=== PATIENT | male | born 1955 | race Caucasian/White ===

== ENCOUNTER 2023-09-08 07:13 | Emergency (ER) | payer OTHER, SELFPAY ==
[2023-09-08 07:16] VITALS: BP 159/98
--- NOTE | 2023-09-08 07:43 | ED.GENMED ---
History of Present Illness
General
Chief Complaint: Abdominal Pain
Source: patient
Time Seen by Provider: 09/08/23 07:31
Travel History
Have you had any contact with someone who has COVID-19?: No
Do you have any symptoms of coronavirus? Fever > 100 degrees, chills, cough, shortness of breath, sore throat, loss of taste or smell, muscle aches, or headache?: No
History of Present Illness
History of Present Illness:
68-year-old male with past medical history of hypertension, DVT/PE and a previous umbilical and femoral hernia (notes he never had these repaired) presents to the emergency department for evaluation of right lower groin pain that started yesterday
that is only present while ambulating describing it as a sharp nonradiating sensation that will resolve with rest or when laying flat. There are no other associated symptoms including nausea, vomiting, bowel changes, urinary symptoms, testicular
pain or swelling, back or flank pain or any other concerns. Patient has not attempted any medications for relief. Notes that while laying in hospital bed at present time he is asymptomatic and without pain.
Past History
Past History
ED Past Medical History: HTN and Other (DVT/PE)
Social History
Tobacco: Non-smoker
Alcohol: None
Drug: None
Personal:
Living: with family
Review of Systems
Review of Systems
All Other Systems: ROS reviewed and negative except as documented in HPI and ROS
Phy Exam
Physical Exam
Physical Exam:
GENERAL: Alert , in no apparent distress
EYE: clear conjunctiva b/l
HEAD: NCAT
ENT: o/p clr, mmm.
ABDOMEN: Soft, without focal tenderness, no r/g, no cvat, negative Handy sign, no tenderness at McBurney's point
Genitourinary: Circumcised, no urethral discharge or bleeding appreciated, no testicular tenderness or edema, positive cremasteric reflex bilateral, no inguinal hernias appreciated
NEUROLOGICAL: Alert and oriented
SKIN: Warm and dry, skin intact.
MUSCULOSKELETAL: No edema, well perfused.
PSYCH: Normal and appropriate interaction.
Scores
Heart Failure Risk
Heart Failure Risk Score: Not Applicable
Heart Score for Chest Pain Patients
STEMI patient?: Not applicable
Withdrawal Assessment of Alcohol
Withdrawal Assessment Completed?: Not applicable
Course
Orders/Labs/Results
Orders:
Orders
09/08/23 07:45
CT Abd/pelvis W Iv Cont Urgent
Comment:
Reason For Exam: right groin pain, hx of femoral/umbilical hernia
09/08/23 07:50
Urinalysis Reflex To Culture Urgent
Date Specimen was Collected: 09/08/23
Time Specimen was Collected: 07:49
Urine Microscopic Reflex Cult Urgent
09/08/23 08:09
Complete Blood Count/With Diff Urgent
Comprehensive Metabolic Panel Urgent
Lipase Urgent
Abnormal Lab Results
09/08/23 09/08/23
07:50 08:09
MCH 31.3 H pg
(27.0-31.0)
Monocytes % 11.3 H %
(1.7-9.3)
Chloride 109 H mmol/L
(98-107)
Glucose 111 H mg/dl
(70-99)
Ur Occult Blood Reflex 1+ A
(Negative)
Leukocyte Esterase Rfl Trace A
(Negative)
09/08/23 08:09
09/08/23 08:09
Vital Signs
Initial and Last Documented VS:
Initial Vital Signs
Temp Pulse Resp BP Pulse Ox
98.0 F 75 16 159/98 97
09/08/23 07:16 09/08/23 07:16 09/08/23 07:16 09/08/23 07:16 09/08/23 07:16
Last Documented Vital Signs
Temp Pulse Resp BP Pulse Ox
98.0 F 71 16 147/79 98
09/08/23 07:16 09/08/23 10:35 09/08/23 10:35 09/08/23 10:35 09/08/23 10:35
MDM/Problems Addressed
Differential Diagnosis Includes:
Direct versus indirect hernia, renal/ureteral colic, muscular etiology, less concern for appendicitis given location of symptoms, UTI
MDM/Problems Addressed:
68-year-old male presenting the emergency department for evaluation for right groin pain that started yesterday but only while ambulating describing a sharp discomfort/pain. Patient is asymptomatic at time of my exam. Exam is otherwise reassuring
without any focal findings. Given the location of the pain and description I do suspect a hernia to be the most likely diagnosis. Will check labs and CT imaging. Patient declining anything for pain. Reassessment following.
*Radiology
Radiology exam reviewed: radiology read reviewed
*Pulse Oximetry
Patient hypoxic: no
*Critical Care Note
Total Time (30-74mins, 75-104mins- exclusive of procedures): Not Applicable
Data Reviewed
Review of Other/Old Records Reveals: Records and Radiology Studies (Patient had previous left femoral hernia with no means on the right side previously.)
Patient Management
Escalation/DeEscalation of care consider admission/obs:
Patient CT of the abdomen and pelvis without any significant findings. There was mild diverticulosis without acute diverticulitis seen however given the location of patient's pain I am less suspicious of this being a cause for his symptoms.
Possible muscular etiology. I discussed with patient that even though he is still having symptoms there does not appear to be any acute emergent pathology on his labs or CT identified. He may follow-up with his primary care physician as an
outpatient. Return precautions discussed but otherwise stable for discharge home.
ED Attending Note
-
Portions of this chart may have been created with voice recognition software.� Occasional wrong word or��sound alike� substitutions may have occurred due to the inherent limitations of voice recognition software.
Discharge Plan
Departure
Patient Disposition: Home (Routine Discharge)
Date of Disposition: 09/08/23
Time of Disposition: 10:28
Patient with high blood pressure during this ER visit?: Yes
Discharge Problem:
Right groin pain
Instructions: Abdominal Pain
Prescriptions:
No Action
metoprolol succinate 100 mg tablet extended release 24 hr
100 mg PO QPM
chlorthalidone 25 mg tablet
25 mg PO QPM
lisinopril 10 mg tablet
10 mg PO QPM
Eliquis 5 mg Tablet
10 mg PO BID 30 Days Qty: 70 0RF
Rx Instructions:
After 08/29, on 08/30 reduce dose to 5mg(1 tab) twice a day
Referrals:
Tree Álvarez, DO [Family Provider] -
Interventions
Interventions:
*Risk Screen - Suicide Last Done: 09/08/23 07:46
*General Assessment Last Done: 09/08/23 07:46
*Neglect/Abuse Screening Last Done: 09/08/23 07:46
ED- Fall Risk Assessment Last Done: 09/08/23 07:46
*ED COVID-19 Vaccine History Last Done: 09/08/23 07:16
*Nursing Disposition Last Done: 09/08/23 10:36
HO-Kuwtiy-Ysaimunhgw Assessment Last Done: 09/08/23 07:46
Discharge Date and Time
Discharge Date/Time: 09/08/23 10:36
[2023-09-08 07:59] LABS: Urine Albumin Negative (Neg - Trace); Urine Bilirubin Negative (Negative); Urine Character Clear (Clear); Urine Color Yellow; Urine Glucose Negative (Negative); Urine Ketone Negative (Negative); Urine Leukocyte Trace (Negative); Urine Nitrite Negative (Negative); Urine Occult Blood 1+ (Negative); Urine Specific Gravity 1.015 (<1.030); Urine Urobilinogen Negative (Neg - 1+)
[2023-09-08 08:10] LABS: Urine Hyaline Cast 0-2 /LPF (0-2)
[2023-09-08 08:11] LABS: Urine Red Blood Cell 0-2 /HPF (0-2); Urine White Cell 0-2 /HPF (0-5)
[2023-09-08 08:16] LABS: % Eosinophils 3.9 % (0-6); % Immature Granulocytes 0.2 % (0-0.5); % Lymphocytes 34.6 % (20.5-51.1); % Monocytes 11.3 % (1.7-9.3); Absolute Basophils 0.1 10^3/uL (0-0.2); Absolute Eosinophils 0.2 10^3/uL (0-0.7); Absolute Lymphocytes 1.7 10^3/uL (1.2-3.4); Absolute Monocytes 0.6 10^3/uL (0.1-0.6); Absolute Neutrophils 2.4 10^3/uL (1.4-6.5); Hematocrit 44.2 % (39.0-52.0); Hemoglobin 15.6 g/dL (13.0-18.0); Mean Corp Hgb Conc. 35.3 g/dL (33.0-37.0); Mean Corpuscular Hgb 31.3 pg (27.0-31.0); Mean Corpuscular Volume 88.6 fL (80.0-94.0); Mean Platelet Volume 9.7 fL (7.4-10.4); Nucleated Red Blood Cells % 0 % (-); Platelet Count 216 10^3/uL (130-400); Red Blood Cell Count 4.99 10^6/uL (4.70-6.10); Red Cell Dist. Width 13.6 % (11.5-14.5); White Blood Cell Count 4.9 10^3/uL (4.8-10.8)
[2023-09-08 08:29] LABS: ALT (SGPT) 21 U/L (0-50); AST (SGOT) 26 U/L (17-59); Albumin 3.9 g/dl (3.5-5.0); Alkaline Phosphatase 66 U/L (38-126); Blood Urea Nitrogen 19 mg/dl (9-20); Calcium 9.3 mg/dl (8.4-10.2); Carbon Dioxide 27 mmol/L (22-30); Chloride 109 mmol/L (98-107); Glucose 111 mg/dl (70-99); Lipase 73 U/L (23-300); Potassium 4.1 mmol/L (3.5-5.1); Sodium 141 mmol/L (135-145); Total Bilirubin 0.7 mg/dl (0.2-1.3); Total Protein 6.7 g/dl (6.3-8.2); eGFR > 60.00
[2023-09-08 10:35] VITALS: BP 147/79
== END 2023-09-08 10:36 | disposition home or self-care (01) ==
LOC: EMR 07:13
PROVIDERS: Physician Assistant Medical; EMERGENCY PHYSICIAN Emergency Medicine; FAMILY PHYSICIAN Family Medicine
DX: R10.31 Right lower quadrant pain (principal); I10 Essential (primary) hypertension; Z86.718 Personal history of other venous thrombosis and embolism
CPT/HCPCS: 99284; 74177; 80053; 81003; 81015; 83690; 85025; Q9967

== ENCOUNTER 2024-10-20 15:23 | Emergency (ER) | payer OTHER, SELFPAY ==
[2024-10-20 15:25] VITALS: BP 157/104
[2024-10-20 15:43] LABS: % Basophils 0.8 % (0-2); % Eosinophils 3.8 % (0-6); % Immature Granulocytes 0.3 % (0-0.5); % Lymphocytes 40.6 % (20.5-51.1); % Monocytes 11.8 % (1.7-9.3); % Neutrophils 42.7 % (42.2-75.2); Absolute Basophils 0.1 10^3/uL (0-0.2); Absolute Eosinophils 0.3 10^3/uL (0-0.7); Absolute Lymphocytes 2.9 10^3/uL (1.2-3.4); Absolute Monocytes 0.8 10^3/uL (0.1-0.6); Hematocrit 44.4 % (39.0-52.0); Hemoglobin 15.4 g/dL (13.0-18.0); Mean Corp Hgb Conc. 34.7 g/dL (33.0-37.0); Mean Corpuscular Volume 92.3 fL (80.0-94.0); Mean Platelet Volume 9.7 fL (7.4-10.4); Nucleated Red Blood Cells % 0 % (-); Platelet Count 241 10^3/uL (130-400); Red Blood Cell Count 4.81 10^6/uL (4.70-6.10); Red Cell Dist. Width 13.2 % (11.5-14.5); White Blood Cell Count 7.1 10^3/uL (4.8-10.8)
[2024-10-20 15:58] LABS: ALT (SGPT) 26 U/L (0-50); AST (SGOT) 26 U/L (17-59); Albumin 3.8 g/dl (3.5-5.0); Alkaline Phosphatase 86 U/L (38-126); Blood Urea Nitrogen 18 mg/dl (9-20); Calcium 9.6 mg/dl (8.4-10.2); Carbon Dioxide 27 mmol/L (22-30); Chloride 109 mmol/L (98-107); Glucose 104 mg/dl (70-99); Lipase 99 U/L (23-300); Potassium 4.6 mmol/L (3.5-5.1); Sodium 142 mmol/L (135-145); Total Bilirubin 0.5 mg/dl (0.2-1.3); eGFR > 60.00
--- NOTE | 2024-10-20 16:19 | ED.GENMED ---
History of Present Illness
<Cate Gilmore PA-C - Last Filed: 10/20/24 23:20>
General
Chief Complaint: Abdominal Symptoms
Source: patient
Exam Limitations: none
Time Seen by Provider: 10/20/24 16:13
Nursing documentation reviewed up to this point in time: agreed with
History of Present Illness
History of Present Illness:
Patient is a 69-year-old male with history hypertension, DVT and PE on Eliquis presenting to the emergency department w/ intermittent right upper quadrant abdominal pain over the past 3 days. Patient reports an intermittent 'burning' sensation in
his right upper abdomen without radiation to back or chest. Symptoms seem to occur randomly and not with any clear correlation to eating. He denies any associated fever, nausea/vomiting, chest pain, or shortness of breath. He has no history of
similar symptoms.
Patient reports compliance with his Eliquis.
Past History
<Cate Gilmore PA-C - Last Filed: 10/20/24 23:20>
Past History
ED Past Medical History: HTN and Other (DVT/PE)
ED Past Surgical History: Other (Hernia repair)
Social History
Tobacco: Non-smoker
Alcohol: None
Drug: None
Personal:
Living: with family
Review of Systems
<Cate Gilmore PA-C - Last Filed: 10/20/24 23:20>
Review of Systems
Allergies reviewed?: Yes
All Other Systems: ROS reviewed and negative except as documented in HPI and ROS
Phy Exam
<Cate Gilmore PA-C - Last Filed: 10/20/24 23:20>
Physical Exam
Physical Exam:
Vitals: Hypertensive, otherwise vital signs stable. Afebrile
General: Patient is well appearing, no acute distress. Nontoxic-appearing
Skin: Warm and dry, no rashes or lesions
Head: Normocephalic, atraumatic
Eyes: Sclera nonicteric. EOMs intact. No nystagmus.
Throat: Protecting airway
Neck: Normal ROM, no cervical spine tenderness, no meningismus
Cardiac: Regular rate and rhythm, no murmurs.
Pulm: Normal respiratory effort, no wheezes, rales, rhonchi heard on exam.
Abdomen: Abdomen soft. Mild tenderness in right upper quadrant. No rebound tenderness or guarding. Negative Handy sign.
Extremities: No evidence of cyanosis or edema
Neuro: AAOx3. CN II-XII intact. No focal neurologic deficits.
Psychiatric: Normal affect.
Course
<Cate Gilmore PA-C - Last Filed: 10/20/24 23:20>
Orders/Labs/Results
Orders:
Orders
10/20/24 15:33
Complete Blood Count/With Diff Urgent
Comprehensive Metabolic Panel Urgent
Lipase Urgent
10/20/24 16:25
US Abdomen Complete/Upper Urgent
Comment:
Reason For Exam: RUQ pain
10/20/24 16:26
Electrocardiogram (*1) Urgent
Reason for Study: Abdominal Pain
EKG- Treatment ONCE
10/20/24 19:42
CT Abd/pelvis W Iv Cont Urgent
Comment:
Reason For Exam: RUQ pain on eliquis
Famotidine [Pepcid] 20 mg IV NOW STA
Abnormal Lab Results
10/20/24
15:33
MCH 32.0 H pg
(27.0-31.0)
Absolute Monos (auto) 0.8 H 10^3/uL
(0.1-0.6)
Monocytes % 11.8 H %
(1.7-9.3)
Chloride 109 H mmol/L
(98-107)
Glucose 104 H mg/dl
(70-99)
10/20/24 15:33
10/20/24 15:33
Vital Signs
Initial and Last Documented VS:
Initial Vital Signs
Temp Pulse Resp BP Pulse Ox
97.9 F 84 16 157/104 97
10/20/24 15:25 10/20/24 15:25 10/20/24 15:25 10/20/24 15:25 10/20/24 15:25
Last Documented Vital Signs
Temp Pulse Resp BP Pulse Ox
97.9 F 84 16 131/72 97
10/20/24 15:25 10/20/24 15:25 10/20/24 15:25 10/20/24 21:00 10/20/24 21:30
<Darren Hoskins Jr., PA-C - Last Filed: 10/20/24 21:28>
Orders/Labs/Results
Orders:
Orders
10/20/24 15:33
Complete Blood Count/With Diff Urgent
Comprehensive Metabolic Panel Urgent
Lipase Urgent
10/20/24 16:25
US Abdomen Complete/Upper Urgent
Comment:
Reason For Exam: RUQ pain
10/20/24 16:26
Electrocardiogram (*1) Urgent
Reason for Study: Abdominal Pain
EKG- Treatment ONCE
10/20/24 19:42
CT Abd/pelvis W Iv Cont Urgent
Comment:
Reason For Exam: RUQ pain on eliquis
Famotidine [Pepcid] 20 mg IV NOW STA
Abnormal Lab Results
10/20/24
15:33
MCH 32.0 H pg
(27.0-31.0)
Absolute Monos (auto) 0.8 H 10^3/uL
(0.1-0.6)
Monocytes % 11.8 H %
(1.7-9.3)
Chloride 109 H mmol/L
(98-107)
Glucose 104 H mg/dl
(70-99)
10/20/24 15:33
10/20/24 15:33
Vital Signs
Initial and Last Documented VS:
Initial Vital Signs
Temp Pulse Resp BP Pulse Ox
97.9 F 84 16 157/104 97
10/20/24 15:25 10/20/24 15:25 10/20/24 15:25 10/20/24 15:25 10/20/24 15:25
Last Documented Vital Signs
Temp Pulse Resp BP Pulse Ox
97.9 F 84 16 131/72 97
10/20/24 15:25 10/20/24 15:25 10/20/24 15:25 10/20/24 21:00 10/20/24 21:30
<Cate Gilmore PA-C - Last Filed: 10/20/24 23:20>
MDM/Problems Addressed
Differential Diagnosis Includes:
Not limited to: Biliary colic, acute cholecystitis, cholangitis, choledocholithiasis, pancreatitis, zoster etc.
MDM/Problems Addressed:
69 y.o male presenting with 3 days of intermittent right upper abdominal discomfort described as 'burning'. No associated fever, vomiting, back pain, or shortness of breath. Patient hypertensive on arrival with otherwise stable vital signs. Physical
exam as above. Basic labs initiated in triage without clinically significant abnormalities. Differential broad at this time. No rash to suggest zoster. Do not suspect PE as patient is currently anticoagulated on eliquis with no SOB and normal vital
signs. Suspect likely intra-abdominal source possible GERD vs biliary colic. Will obtain abdominal US. Patient declining analgesia at this time.
Update: US without acute findings. Discussed with patient. Will proceed w/ CT abdomen for further eval. Will give dose IV pepcid.
Case signed out to Armando Hoskins PA-C pending CT scan.
Chronic conditions affecting care:
Hypertension, DVT/PE on Eliquis
Acute Exacerbation and/or Progression of Chronic Illness:
Acutely hypertensive
<Cate Gilmore PA-C - Last Filed: 10/20/24 23:20>
*Pulse Oximetry
Patient hypoxic: no
*EKG
Interpreted by ED Provider?: Yes
EKG Intrepretation Date: 10/20/24
Interpretation: abnormal
Comparison EKG: no changes
Heart Rate: 68
Rate: normal
Rhythm: sinus
[place]: normal axis
Interval: normal QT interval
QRS Pattern: normal QRS
Ischemia: non-specific ST changes
*Screwdown Operator Interpretation
Rate: Screwdown Operator- N/A
*Critical Care Note
Total Time (30-74mins, 75-104mins- exclusive of procedures): Not Applicable
<Darren Hoskins Jr., PA-C - Last Filed: 10/20/24 21:28>
Update Note
Update Note:
2120: ES////CT scan without emergent findings discussed with the patient patient well-appearing no distress at this point stable for discharge. Written for antacid medication otherwise return precautions given.
ED Attending Note
<Cate Gilmore PA-C - Last Filed: 10/20/24 23:20>
-
Portions of this chart may have been created with voice recognition software.� Occasional wrong word or��sound alike� substitutions may have occurred due to the inherent limitations of voice recognition software.
Discharge Plan
Departure
Patient Disposition: Home (Routine Discharge)
Date of Disposition: 10/20/24
Time of Disposition: 21:27
Patient with high blood pressure during this ER visit?: No
Condition: Good
Covid-19: Not Applicable
Discharge Problem:
Abdominal pain
Instructions: Abdominal Pain
Prescriptions:
New
famotidine 40 mg tablet
40 mg PO DAILY Qty: 14 0RF
No Action
metoprolol succinate 100 mg tablet extended release 24 hr
100 mg PO QPM
chlorthalidone 25 mg tablet
25 mg PO QPM
lisinopril 10 mg tablet
10 mg PO QPM
Eliquis 5 mg Tablet
10 mg PO BID 30 Days Qty: 70 0RF
Rx Instructions:
After 08/29, on 08/30 reduce dose to 5mg(1 tab) twice a day
Referrals:
Tree Álvarez DO [Family Provider] -
Activity Restrictions/Additional Instructions:
You came to the emergency department today with concerns of upper abdominal pain and chest discomfort. He had a reassuring assessment. Please have closely as an outpatient. Return for any worsening, new or concerning symptoms.
Interventions
Interventions:
*Risk Screen - Suicide Last Done: 10/20/24 15:25
*General Assessment Last Done: 10/20/24 15:25
*Neglect/Abuse Screening Last Done: 10/20/24 15:25
*ED- Fall Risk Assessment Last Done: 10/20/24 21:49
*ED COVID-19 Vaccine History Last Done: 10/20/24 15:25
*Nursing Disposition Last Done: 10/20/24 21:49
PN-Bevdjh-Azozhlbezj Assessment Last Done: 10/20/24 19:22
Discharge Date and Time
Discharge Date/Time: 10/20/24 21:51
Print Language: EQUATORIAL [place]
[2024-10-20 19:19] VITALS: BP 129/84
[2024-10-20 19:25] VITALS: BMI 38.7
[2024-10-20] MEDS: PEPCID 20 MG IV (19:53)
[2024-10-20 20:25] VITALS: BP 134/92
[2024-10-20 21:00] VITALS: BP 131/72
== END 2024-10-20 21:51 | disposition home or self-care (01) ==
LOC: EMR 15:23
PROVIDERS: Emergency Medicine; EMERGENCY PHYSICIAN Emergency Medicine; FAMILY PHYSICIAN Family Medicine
DX: R10.11 Right upper quadrant pain (principal); I10 Essential (primary) hypertension; Z86.718 Personal history of other venous thrombosis and embolism; Z86.711 Personal history of pulmonary embolism; Z79.01 Long term (current) use of anticoagulants
CPT/HCPCS: 96374; 99284; 74177; 76700; 80053; 83690; 85025; 93005; Q9967

== ENCOUNTER 2025-04-14 11:38 | Emergency (ER) | payer OTHER, SELFPAY ==
[2025-04-14 11:41] VITALS: BP 124/92
[2025-04-14 12:08] LABS: Hematocrit 49.2 % (39.0-52.0); Hemoglobin 16.2 g/dL (13.0-18.0); Mean Corp Hgb Conc. 32.9 g/dL (33.0-37.0); Mean Corpuscular Volume 93.9 fL (80.0-94.0); Nucleated Red Blood Cells % 0 % (-); Platelet Count 222 10^3/uL (130-400); Red Cell Dist. Width 13.6 % (11.5-14.5)
[2025-04-14 12:14] LABS: INR 0.96; PT 13.1 Sec (11.4-14.6)
[2025-04-14 12:24] LABS: ALT (SGPT) 28 U/L (0-50); AST (SGOT) 32 U/L (17-59); Albumin 4.5 g/dl (3.5-5.0); Alkaline Phosphatase 78 U/L (38-126); Blood Urea Nitrogen 27 mg/dl (9-20); Calcium 9.4 mg/dl (8.4-10.2); Carbon Dioxide 28 mmol/L (22-30); Chloride 107 mmol/L (98-107); Glucose 95 mg/dl (70-99); Potassium 4.8 mmol/L (3.5-5.1); Sodium 143 mmol/L (135-145); Total Protein 8.0 g/dl (6.3-8.2); eGFR 59.10
[2025-04-14 12:33] LABS: Troponin I < 0.012 ng/ml
--- NOTE | 2025-04-14 14:09 | ED.GENMED ---
History of Present Illness
General
Chief Complaint: Breathing Problem
Time Seen by Provider: 04/14/25 14:01
Nursing documentation reviewed up to this point in time: agreed with
History of Present Illness
History of Present Illness:
69-year-old male presents to the ER for evaluation of burning chest pain and cough which has been ongoing for the past 2 days. Patient reports that he is a prior history of pulmonary embolism and DVT. He has been taking his Eliquis as prescribed.
He denies any fevers or chills. He does report having a sore throat for the past 2 days. No reported fever. No reported sick contacts. He does report some minor discomfort behind his right knee which is new in the past few days.
Past History
Past History
ED Past Medical History: HTN and Other (DVT/PE)
ED Past Surgical History: Other (Hernia repair)
Social History
Tobacco: Non-smoker
Alcohol: None
Drug: None
Personal:
Living: with family
Review of Systems
Review of Systems
Allergies reviewed?: Yes
Phy Exam
Physical Exam
Physical Exam:
Patient is awake, alert, appears in no acute distress, head is NCAT, PERRL, EOMI mucous membranes moist, conjunctiva pink, posterior pharynx is clear, no erythema, no asymmetry, no exudates, heart regular rate and rhythm without murmurs or ectopy,
lungs are clear to auscultation without wheezes rales or rhonchi, no JVD, abdomen is soft and nontender on palpation, trace edema to right lower extremity with mild chronic venous stasis changes, 2+ DP pulses present symmetric bilateral feet, GCS is
15
Scores
Heart Failure Risk
Heart Failure Risk Score: Not Applicable
Course
Orders/Labs/Results
Orders:
Orders
04/14/25 11:43
Electrocardiogram (*1) Urgent
Reason for Study: Shortness of Breath
04/14/25 11:44
EKG- Treatment ONCE
04/14/25 11:47
Complete Blood Count/With Diff Urgent
Comprehensive Metabolic Panel Urgent
Prothrombin Time Urgent
Troponin I Urgent
04/14/25 14:03
CT Chest PE Study Urgent
Comment: h/o PE
Reason For Exam: chest pain
04/14/25 14:08
US Legs, Right [US Periph Venous LOWER Ext RT] Urgent
Comment:
Reason For Exam: swelling
04/14/25 14:20
COVID-19 Antigen Urgent
Source: Nasal Swab
Abnormal Lab Results
04/14/25
11:47
MCHC 32.9 L g/dL
(33.0-37.0)
Absolute Monos (auto) 0.9 H 10^3/uL
(0.1-0.6)
Neutrophils % 34.6 L %
(42.2-75.2)
Monocytes % 18.0 H %
(1.7-9.3)
BUN 27 H mg/dl
(9-20)
04/14/25 11:47
04/14/25 11:47
Labs are very reassuring with negative troponin, normal CBC, normal kidney function
Vital Signs
Initial and Last Documented VS:
Initial Vital Signs
Temp Pulse Resp BP Pulse Ox
98.5 F 96 16 124/92 98
04/14/25 11:41 04/14/25 11:41 04/14/25 11:41 04/14/25 11:41 04/14/25 11:41
Last Documented Vital Signs
Temp Pulse Resp BP Pulse Ox
98.5 F 84 16 124/92 98
04/14/25 11:41 04/14/25 14:26 04/14/25 11:41 04/14/25 11:41 04/14/25 14:11
MDM/Problems Addressed
Differential Diagnosis Includes:
Differential diagnosis to consider but not limited to pneumonia, viral syndrome, bronchitis, COVID, ACS, flu, PE along with other etiologies consider
Chronic conditions affecting care:
Prior PE, hypertension, age greater than 50
*Radiology
Radiology exam reviewed: radiology read reviewed (IMPRESSION: No acute disease of the chest. No pulmonary embolus Mild mediastinal lymphadenopathy. Nonspecific and likely insignificant. Stable. )
*Pulse Oximetry
SaO2: 98
Oxygen Mode of Delivery: Room air
Patient hypoxic: no
*EKG
Interpreted by ED Provider?: Yes (I independently viewed and interpreted twelve-lead EKG showing normal sinus rhythm, rate 81, normal axis, normal normals, nonspecific T wave flattening, no evidence for acute ischemia, similar to prior from
10/20/2024)
*Rice Drier Operator Interpretation
Rate: normal (I independently viewed and interpreted rhythm strip showing normal sinus rhythm, no ectopy)
*Critical Care Note
Total Time (30-74mins, 75-104mins- exclusive of procedures): Not Applicable
Update Note
Update Note:
I discussed with patient need for CT to rule out PE-he agrees with plan at current. I offered patient bronchodilator to try for his cough while awaiting test results. He is declining this at current. I also discussed with him swelling in right
lower extremity likely related to prior DVT. Patient is concerned that he may have recurrence, will check ultrasound also. Awaiting results.
1800: Once all test results available, I discussed with patient very reassuring ultrasound-no evidence for recurrent DVT. I also discussed with him CT results. No evidence for PE or pneumonia. He has nonspecific lymphadenopathy which is unchanged
compared to prior. He was not aware of this finding. I advised him to follow-up with his primary care physician for reevaluation and further care. He feels comfortable with plan for supportive treatment available [id number] and has no
questions at the current time.
ED Attending Note
-
Portions of this chart may have been created with voice recognition software.� Occasional wrong word or��sound alike� substitutions may have occurred due to the inherent limitations of voice recognition software.
Discharge Plan
Departure
Patient Disposition: Home (Routine Discharge)
Date of Disposition: 04/14/25
Time of Disposition: 18:17
Patient with high blood pressure during this ER visit?: No
Discharge Problem:
Chest pain, URI (upper respiratory infection)
Instructions: Chest Pain (DC), Upper Respiratory Infection - Adult
Prescriptions:
No Action
metoprolol succinate 100 mg tablet extended release 24 hr
100 mg PO QPM
chlorthalidone 25 mg tablet
25 mg PO QPM
lisinopril 10 mg tablet
10 mg PO QPM
Eliquis 5 mg Tablet
10 mg PO BID 30 Days Qty: 70 0RF
Rx Instructions:
After 08/29, on 08/30 reduce dose to 5mg(1 tab) twice a day
famotidine 40 mg tablet
40 mg PO DAILY Qty: 14 0RF
Referrals:
Tree Álvarez DO [Family Provider, Family Practice]
Activity Restrictions/Additional Instructions:
Use Tylenol as available [id number] for your discomfort. You may also use Mucinex as available [id number] for cough and symptoms of congestion. Please make sure you are drinking plenty of water. Please follow-up with your family
physician this week for reevaluation or return to the ER for any concerns.
Interventions
Interventions:
*Risk Screen - Suicide Last Done: 04/14/25 11:41
*General Assessment Last Done: 04/14/25 11:41
*Neglect/Abuse Screening Last Done: 04/14/25 11:41
*ED- Fall Risk Assessment Last Done: 04/14/25 11:41
*ED COVID-19 Vaccine History Last Done: 04/14/25 11:41
*ED Influenza Vaccine History Last Done: 04/14/25 11:41
Discharge Date and Time
Print Language: CITIZ[place]
[2025-04-14 14:13] VITALS: BMI 38.4
[2025-04-14 14:53] LABS: COVID-19 Antigen Negative (Negative)
[2025-04-14 18:14] VITALS: BP 129/81
== END 2025-04-14 18:53 | disposition home or self-care (01) ==
LOC: EMR 11:38
PROVIDERS: Student in an Organized Health Care Education/Training Program; EMERGENCY PHYSICIAN Emergency Medicine; FAMILY PHYSICIAN Family Medicine
DX: J06.9 Acute upper respiratory infection, unspecified (principal); R07.9 Chest pain, unspecified; I10 Essential (primary) hypertension; Z86.718 Personal history of other venous thrombosis and embolism; Z86.711 Personal history of pulmonary embolism; Z79.01 Long term (current) use of anticoagulants
CPT/HCPCS: 99284; 71275; 80053; 84484; 85025; 85610; 87811; 93005; 93971; Q9967

== ENCOUNTER 2025-04-19 13:00 | Emergency (ER) | payer OTHER, SELFPAY ==
[2025-04-19 13:06] VITALS: BP 116/94
[2025-04-19 13:28] LABS: Hematocrit 42.2 % (39.0-52.0); Hemoglobin 14.8 g/dL (13.0-18.0); Mean Corp Hgb Conc. 35.1 g/dL (33.0-37.0); Mean Corpuscular Volume 87.9 fL (80.0-94.0); Nucleated Red Blood Cells % 0 % (-); Platelet Count 197 10^3/uL (130-400); Red Cell Dist. Width 13.1 % (11.5-14.5)
[2025-04-19 13:44] LABS: ALT (SGPT) 27 U/L (0-50); AST (SGOT) 33 U/L (17-59); Albumin 4.2 g/dl (3.5-5.0); Alkaline Phosphatase 71 U/L (38-126); Blood Urea Nitrogen 18 mg/dl (9-20); Calcium 9.3 mg/dl (8.4-10.2); Carbon Dioxide 23 mmol/L (22-30); Chloride 110 mmol/L (98-107); Glucose 94 mg/dl (70-99); Potassium 4.7 mmol/L (3.5-5.1); Sodium 139 mmol/L (135-145); Total Protein 7.4 g/dl (6.3-8.2); eGFR > 60.00
--- NOTE | 2025-04-19 17:04 | ED.GENMED ---
History of Present Illness
General
Chief Complaint: Breathing Problem
Source: patient
Exam Limitations: none
Time Seen by Provider: 04/19/25 16:58
History of Present Illness
History of Present Illness:
69-year-old male on Eliquis 5 mg twice a day presents with worsening pain to the right posterior chest that is worse with coughing and moving. He also feels that he has some fluid in his lung. He was here 4 days ago for similar had a CT of his
chest at that point which showed nothing new. He denies fever or hemoptysis. No other complaints
Past History
Past History
ED Past Medical History: HTN and Other (DVT/PE)
ED Past Surgical History: Other (Hernia repair)
Social History
Tobacco: Non-smoker
Alcohol: None
Drug: None
Personal:
Living: with family
Phy Exam
Physical Exam
Physical Exam:
General: Well-appearing male no acute respiratory distress
HEENT normal cephalic atraumatic
Heart: Regular rate and rhythm
Lungs: Coarse throughout with rales at the right base
Extremities: No cyanosis
Scores
Heart Failure Risk
Heart Failure Risk Score: Not Applicable
Course
Orders/Labs/Results
Orders:
Orders
04/19/25 13:05
EKG [Electrocardiogram (*1)] Urgent
Reason for Study: Chest Pain
EKG- Treatment ONCE
04/19/25 13:15
BNP [NT-proBNP] Urgent
CBC/With Diff [Complete Blood Count/With Diff] Urgent
CMP [Comprehensive Metabolic Panel] Urgent
04/19/25 17:04
Ipratropium/Albuterol Sulfate [Duoneb] 3 ml INH R NOW STA
CR Chest - 2 Views Urgent
Comment:
Reason For Exam: sob, wheeze, right sided pain
Abnormal Lab Results
04/19/25
13:15
Chloride 110 H mmol/L
(98-107)
04/19/25 13:15
04/19/25 13:15
Vital Signs
Initial and Last Documented VS:
Initial Vital Signs
Temp Pulse Resp BP Pulse Ox
98.7 F 79 15 116/94 98
04/19/25 13:06 04/19/25 13:06 04/19/25 13:06 04/19/25 13:06 04/19/25 13:06
Last Documented Vital Signs
Temp Pulse Resp BP Pulse Ox
97.9 F 65 22 141/89 95
04/19/25 19:40 04/19/25 19:30 04/19/25 19:30 04/19/25 19:00 04/19/25 19:44
MDM/Problems Addressed
Differential Diagnosis Includes:
Pleuritic pain to the right posterior chest wall in a patient on Eliquis. Consider pneumonia less likely be PE secondary to anticoagulated state, pleural effusion, muscular strain or bronchitis
Labs through triage showed a normal BNP and electrolyte profile. Ordered plain chest x-ray. I did review the CAT scan from 4 days ago which was negative. DuoNeb ordered male secondary to coarse breath sounds
*Pulse Oximetry
SaO2: 98
Oxygen Mode of Delivery: Room air
Patient hypoxic: no
*Critical Care Note
Total Time (30-74mins, 75-104mins- exclusive of procedures): Not Applicable
Update Note
Update Note:
Chest x-ray clear. He does note improvement after the DuoNeb. Suspect acute bronchitis. Will send home with inhaler and steroid medicine and follow-up. Stable for discharge
ED Attending Note
-
Portions of this chart may have been created with voice recognition software.� Occasional wrong word or��sound alike� substitutions may have occurred due to the inherent limitations of voice recognition software.
Discharge Plan
Departure
Patient Disposition: Home (Routine Discharge)
Date of Disposition: 04/19/25
Time of Disposition: 20:15
Patient with high blood pressure during this ER visit?: No
Discharge Problem:
Acute bronchitis
Instructions: Acute Bronchitis, Adult (DC)
Prescriptions:
New
albuterol sulfate [Ventolin HFA] 90 mcg/actuation HFA aerosol inhaler
2 puff inhalation QID PRN (Reason: shortness of breath or wheezing) Qty: 6.7 0RF
prednisone 20 mg tablet
40 mg PO DAILY 5 Days Qty: 10 0RF
No Action
metoprolol succinate 100 mg tablet extended release 24 hr
100 mg PO QPM
chlorthalidone 25 mg tablet
25 mg PO QPM
lisinopril 10 mg tablet
10 mg PO QPM
Eliquis 5 mg Tablet
10 mg PO BID 30 Days Qty: 70 0RF
Rx Instructions:
After 08/29, on 08/30 reduce dose to 5mg(1 tab) twice a day
famotidine 40 mg tablet
40 mg PO DAILY Qty: 14 0RF
Referrals:
Suzi Murguia MD [Active, Pulmonary Medicine]
Lang Kate MD [Family Provider, Internal Medicine]
Activity Restrictions/Additional Instructions:
Use inhaler as needed for wheezing or shortness of breath. Use prednisone as directed. Return if needed.
Interventions
Interventions:
*Risk Screen - Suicide Last Done: 04/19/25 13:06
*General Assessment Last Done: 04/19/25 13:06
*Neglect/Abuse Screening Last Done: 04/19/25 13:06
*ED COVID-19 Vaccine History Last Done: 04/19/25 13:06
*ED Influenza Vaccine History Last Done: 04/19/25 13:06
ED- Cardiac Assessment Last Done: 04/19/25 19:43
ED- Pulmonary Assessment Last Done: 04/19/25 19:44
Discharge Date and Time
Print Language: CONGOLESE
[2025-04-19] MEDS: DUONEB 3 ML INH (17:21)
[2025-04-19 18:00] VITALS: BP 138/81
[2025-04-19 19:00] VITALS: BP 141/89
[2025-04-19 20:00] VITALS: BP 152/83
== END 2025-04-19 20:30 | disposition home or self-care (01) ==
LOC: EMR 13:00
PROVIDERS: EMERGENCY PHYSICIAN Emergency Medicine; FAMILY PHYSICIAN Internal Medicine Geriatric Medicine
DX: J20.9 Acute bronchitis, unspecified (principal); I10 Essential (primary) hypertension; Z79.01 Long term (current) use of anticoagulants; Z86.718 Personal history of other venous thrombosis and embolism; Z86.711 Personal history of pulmonary embolism
CPT/HCPCS: 99284; 94640; 71046; 80053; 83880; 85025; 93005